=== PATIENT | male | born 1990 | race Caucasian/White ===

== ENCOUNTER 2017-10-06 17:19 | Emergency (ER) | payer BC, OTHER ==
[~2017-10-06] VITALS: Ht 188 cm; Wt 75.0 kg
[2017-10-06 17:26] VITALS: Ht 188 cm; Wt 75.0 kg
[2017-10-06] MEDS ORDERED: ALBUTEROL 0.083% (NEB) 2.5 MG/3 ML AMP INH STA (17:29)
[2017-10-06] MEDS ORDERED: DIPHENHYDRAMINE 50 MG INJ IV STA (17:29)
[2017-10-06] MEDS ORDERED: METHYLPREDNISOLONE 125 MG INJ IV STA (17:29)
[2017-10-06] MEDS ORDERED: EPINEPHrine 1 MG INJ IM STA (17:29)
[2017-10-06] MEDS ORDERED: FAMOTIDINE 20 MG INJ IV STA (17:29)
--- NOTE | 2017-10-06 17:44 | ERD ---
ER Documentation Chief Complaint Chief Complaint C/O SOB AFTER EATING SOY PROTEIN. PT WITH HX OF SOY AND PEANUT ALLERGY HPI This is a 26-year-old male with allergies to soy and peanuts. The patient states that he ate a soy protein fish just prior to arrival. The patient states that he started to feel itching of his tongue, difficulty swallowing and lip swelling of the lower lip. He states that he took 50 mg of Benadryl with mild improvement. The patient states that symptoms are improving but still has a fullness sensation in his throat and a slightly raspy voice. He does not have a rash or facial swelling which he states that he has had in the past. The patient does describe a history of severe allergies. He states that he did not ingest the fish but spit it out. ROS All systems reviewed and are negative except as per history of present illness. Medications Home Meds Active Scripts Prednisone* (Prednisone*) 20 Mg Tab, 40 MG PO DAILY for 4 Days, TAB Prov:SOPHIA RHODES MD 10/06/17 Hydroxyzine Hcl* (Atarax*) 25 Mg Tab, 25 MG PO Q6H Y for ITCHING, #30 TAB Prov:SOPHIA RHODES MD 10/06/17 Epinephrine (Epipen 2-Nguyễn) 0.3 Mg/0.3 Ml Pen.injctr, 1 EA INJ ONCE Y for ALLERGIC REACTION, #1 EA Prov:SOPHIA RHODES MD 10/06/17 Allergies Allergies: Coded Allergies: peanut (Verified Allergy, Unknown, 10/06/17) soy (Verified Allergy, Unknown, 10/06/17) PMhx/Soc Medical and Surgical Hx: pt denies Medical Hx, pt denies Surgical Hx Hx Alcohol Use: No Hx Substance Use: No Hx Tobacco Use: No Smoking Status: Never smoker FmHx Family History: No diabetes Physical Exam Vitals Vital Signs Date Time Temp Pulse Resp B/P Pulse Ox O2 Delivery O2 Flow Rate FiO2 10/06/17 17:38 76 12 100 21 10/06/17 17:26 97.9 88 16 142/79 98 Physical Exam General: Well developed, well nourished, no acute distress Head: Normocephalic, atraumatic. Eyes: Pupils equally reactive, EOM intact ENT: Moist mucous membranes, mild hyperemia and swelling of the lower lip, no tongue swelling, uvula midline without swelling of the posterior pharynx, tolerating secretions, no stridor Neck: Supple, no lymphadenopathy Respiratory: Lungs clear bilaterally, no distress Cardiovascular: RRR, no murmurs, rubs, or gallops Abdominal: Soft, non-tender, non-distended, no peritoneal signs : Deferred MSK: No edema, no unilateral swelling, 5/5 strength Neurologic: Alert and oriented, moving all extremities, normal speech, no focal weakness, no cerebellar signs Skin: No rash Psych: Normal mood Results 24 hrs Current Medications Medications (Trade) Dose Ordered Sig/Dalton Route PRN Reason Start Time Stop Time Status Last Admin Dose Admin Diphenhydramine HCl (Benadryl) 25 mg ONCE STAT IV 10/06/17 17:29 10/06/17 17:31 DC 10/06/17 17:43 Epinephrine (EPINEPHrine) 0.3 mg ONCE STAT IM 10/06/17 17:29 10/06/17 17:31 DC 10/06/17 17:44 Famotidine (Pepcid Iv) 20 mg ONCE STAT IV 10/06/17 17:29 10/06/17 17:31 DC 10/06/17 17:44 Methylprednisolone Sodium Succinate (Solu-Medrol) 125 mg ONCE STAT IV 10/06/17 17:29 10/06/17 17:31 DC 10/06/17 17:44 Albuterol (Proventil 0.083% (Neb)) 2.5 mg ONCE STAT INH 10/06/17 17:29 10/06/17 17:31 DC 10/06/17 17:37 Ondansetron HCl (Zofran Inj) 4 mg ONCE STAT IV 10/06/17 18:02 10/06/17 18:03 DC Procedures/MDM MEDICAL DECISION MAKING: The patient presents with signs and symptoms concerning for acute allergic reaction versus early anaphylaxis. The patient has severe soy and peanut allergy. The patient has evidence of lip swelling, he has a fullness sensation in his throat but he is talking in full sentences without stridor. He states that the symptoms are improving but given airway components I believe the benefits of epinephrine outweigh the risks. I discussed this with the patient who agrees. The patient has no evidence of impending airway failure and no indication for intubation. ER COURSE: Patient was given Solu-Medrol, Benadryl, Pepcid, epinephrine. The patient will be observed for a period of time in the emergency room. He was also given a breathing treatment. The patient seems to have stabilization and improvement of his symptoms. With serial examinations he does not require intubation or airway intervention. The patient was observed for over 2 hours in the emergency room. He now has complete resolution of symptoms. I discussed observation for 4 hours total given that he was given epinephrine but the patient has an excellent understanding of return precautions. He has an EpiPen. He feels comfortable managing this as an outpatient. I believe this is reasonable. The patient is well educated with good understanding with family and friends around him. The patient would do well as an outpatient and can be safely discharged at this point. I kept the patient and/or family informed of laboratory and diagnostic imaging results throughout the emergency room course. DISPOSITION PLAN: We discussed follow up with the patient's primary care doctor within 24 to 48 hours as needed. We also discussed return to the emergency room for worsening symptoms or worsening condition. Outpatient referral: [None required] Discharge Medications: EpiPen, prednisone, Atarax Departure Diagnosis: Primary Impression: Anaphylaxis Encounter type: initial encounter Qualified Code: T78.2XXA - Anaphylaxis, initial encounter Additional Impression: Food allergy Condition: Stable SOPHIA RHODES MD Oct 06, 2017 17:44
[2017-10-06] MEDS ORDERED: ONDANSETRON 4 MG INJ IV STA (18:02)
[2017-10-06] MEDS ORDERED: PRED20TA PO (19:07)
[2017-10-06] MEDS ORDERED: EPIN0.3P4 INJ (19:07)
[2017-10-06] MEDS ORDERED: HYDR-842 PO (19:07)
[2017-10-06 19:51] VITALS: BP 122/69; PULSE 59; RESP 18
== END 2017-10-06 19:55 | disposition home or self-care (01) ==
LOC: E/R 17:19
DX: T78.2XXA Anaphylactic shock, unspecified, initial encounter (principal); Z91.010 Allergy to peanuts
CPT/HCPCS: 94664; 96372; 96374; 96375; 99284; J0171; J1200; J2930; 94640